=== PATIENT | female | born 1940 | race Caucasian/White ===

== ENCOUNTER 2016-12-18 17:19 | Emergency (ER) | payer MEDICARE ==
[~2016-12-18] VITALS: Ht 162.6 cm; Wt 67.0 kg
[~2016-12-18 17:19] MED LIST: BISA-49; CITA20TA5; HYDR-3138
[2016-12-18 18:55] LABS: HEMATOCRIT 42.5 % (34.6-47.8); HEMOGLOBIN 14.2 g/dL (11.7-16.4); WHITE BLOOD COUNT 7.9 x10^3/uL (3.4-10)
[2016-12-18 19:03] LABS: BLOOD UREA NITROGEN 9 mg/dL (7-18)
[2016-12-18 19:53] VITALS: BP 162/84
== END 2016-12-18 20:17 | disposition home or self-care (01) ==
LOC: EDSEX 17:19 → ED 18:09
DX: S61.451A Open bite of right hand, initial encounter (principal); L03.113 Cellulitis of right upper limb; W55.01XA Bitten by cat, initial encounter; Y93.89 Activity, other specified; Y92.009 Unspecified place in unspecified non-institutional (private) residence as the place of occurrence of the external cause; Y99.9 Unspecified external cause status
CPT/HCPCS: 36415; 80048; 85025; 99285

== ENCOUNTER 2018-10-01 19:34 | Emergency (ER) | payer MEDICARE ==
[~2018-10-01] VITALS: Ht 162.6 cm; Wt 58.4 kg
[~2018-10-01 19:34] MED LIST changes: -CITA20TA5; +CITA20TA6; -HYDR-3138; +HYDR-3237
[2018-10-01 19:41] VITALS: BP 169/102
[2018-10-01 20:17] LABS: BASOPHILS # (AUTO) 0.03 x10^3/uL (0-0.1); BASOPHILS % (AUTO) 0 % (0-1); EOSINOPHILS # (AUTO) 0.22 x10^3/uL (0-0.4); EOSINOPHILS % (AUTO) 3 % (1-7); LYMPHOCYTES # (AUTO) 0.93 x10^3/uL (1-3.4); LYMPHOCYTES % (AUTO) 11 % (22-44); MD NO; MEAN CORPUSCULAR HEMOGLOBIN 31.9 pg (27.0-34.8); MEAN CORPUSCULAR HGB CONC 32.8 g/dL (32.4-35.8); MEAN CORPUSCULAR VOLUME 97.2 fL (80-100); MEAN PLATELET VOLUME 7.4 fL (7.4-10.4); MONOCYTES # (AUTO) 0.76 x10^3/uL (0.2-0.8); MONOCYTES % (AUTO) 9 % (2-9); NEUTROPHILS # (AUTO) 6.71 x10^3/uL (1.8-6.8); NEUTROPHILS % (AUTO) 78 % (42-75); PLATELET COUNT 289 x10^3/uL (130-400); RED BLOOD COUNT 4.53 x10^6/uL (3.82-5.3); RED CELL DISTRIBUTION WIDTH 14.4 % (9.6-15.2)
[2018-10-01 20:30] LABS: ALANINE AMINOTRANSFERASE 14 U/L (12-78); ALBUMIN 4.2 g/dL (3.4-5.0); ANION GAP 7 mmol/L (5-15); CALCIUM 8.6 mg/dL (8.5-10.1); CHLORIDE 101 mmol/L (98-107); CREATININE 0.89 mg/dL (0.55-1.02)
--- NOTE | 2018-10-01 20:30 | NUR ---
FROM LOBBY TO ROOM AT THIS TIME
[2018-10-01 20:34] LABS: ALKALINE PHOSPHATASE 95 U/L (45-117); BILIRUBIN,TOTAL 0.3 mg/dL (0.2-1.0); TOTAL PROTEIN 7.7 g/dL (6.4-8.2)
--- NOTE | 2018-10-01 20:36 | NUR ---
PT TO ROOM PLACED IN A GOWN AND AWAITING ERP AND ORDERS.
--- NOTE | 2018-10-01 20:56 | NUR ---
PT UP FOR RECHECK
== END 2018-10-01 22:44 | disposition home or self-care (01) ==
LOC: ED 21:48
DX: J20.8 Acute bronchitis due to other specified organisms (principal); Z87.891 Personal history of nicotine dependence
CPT/HCPCS: 36415; 71046; 80053; 83880; 85025; 93005; 99284

== ENCOUNTER 2019-05-28 16:50 | Emergency (ER) | payer MEDICARE ==
[~2019-05-28] VITALS: Ht 162.6 cm; Wt 59.0 kg
--- NOTE | 2019-05-28 17:33 | NUR ---
PT PRESENTING FOR REFILL ON HTN MEDS, ANXIETY MEDS AND TO GET LEFT ANKLE SWELLING LOOKED AT. PT STS HAS BEEN OUT OF MEDS SINCE NOV D/T INABILITY TO GET APT WITH PCP. NEXT APT IN JUNE. CONNECTED TO MONITORING, HTN NOTED. FMAILY AT BEDSIDE. CALL LIGHT WITHIN REACH. AWAITING ORDERS AT THIS TIME
--- NOTE | 2019-05-28 18:32 | NUR ---
ALL RESUTLS BACK AT THIS TIME, CHART UP FOR RECHECK
[2019-05-28 19:49] VITALS: BP 160/83
== END 2019-05-28 19:52 | disposition home or self-care (01) ==
LOC: ED 18:00
DX: I10 Essential (primary) hypertension (principal); F41.9 Anxiety disorder, unspecified; R51 Headache; Z76.0 Encounter for issue of repeat prescription
CPT/HCPCS: 71045; 93005; 99283

== ENCOUNTER 2020-11-10 14:56 | Emergency (ER) | payer MEDICARE ==
[~2020-11-10] VITALS: Ht 162.6 cm; Wt 63.4 kg
[2020-11-10] MEDS ORDERED: hydrOXyzine 50MG TABLET ONE (15:44)
[2020-11-10] MEDS ORDERED: hydrOXyzine 50MG TABLET PO ONE (16:00)
[2020-11-10] MEDS ORDERED: LORazepam 1MG TABLET ONE (16:50)
[2020-11-10] MEDS ORDERED: LORazepam 1MG TABLET PO ONE (17:00)
--- NOTE | 2020-11-10 17:43 | NUR ---
PT REC'VD DISCHARGE INSTRUCTIONS AND EDUCATION. PT HAD NO FURTHER QUESTIONS.
[2020-11-10 17:44] VITALS: BP 164/85
--- NOTE | 2020-11-10 17:57 | NUR ---
PT AMBULATED WITH SON TO DC AREA, STEADY GAIT.
== END 2020-11-10 17:59 | disposition home or self-care (01) ==
LOC: ED 16:03
DX: F41.1 Generalized anxiety disorder (principal); I10 Essential (primary) hypertension
CPT/HCPCS: 99283